=== PATIENT | male | born 1995 | race Caucasian/White ===

== ENCOUNTER 2018-09-04 00:48 | Emergency (ER) | payer SELFPAY ==
[~2018-09-04] VITALS: Ht 170.2 cm; Wt 72.6 kg
--- NOTE | 2018-09-04 01:10 | NUR ---
BIB SELF FROM HOME. AAOX4. BREATHING EVEN AND UNLABORED. AMBULATORY. C/O FEVER X4 DAYS, SORE THROAT X 1 MONTH AND TINGLING ON BILAT LOWER EXTREMITIES X 2 HOURS AGO. PT REPORT INTERMITENT CHEST PAIN WHICH IN NOT PRESENT AT THE TIME OF ASSESSMENT. PT ALSO REPORTS NON PRODUCTIVE COUGH AND HEADACHE. +NAUSEA, NO VOMITING OR DIARRHEA. TO ER BED 12. AWAITING MD CARTY AND ORDERS
[2018-09-04] MEDS ORDERED: IV NS 0.9% 1,000 ML BAG IV ONE (01:30)
[2018-09-04 01:40] LABS: BASOPHILS % (AUTO) 0.3 % (0.0-2.0); EOSINOPHILS % (AUTO) 0.1 % (0.0-6.0); HEMATOCRIT 46 % (39-51); HEMOGLOBIN 15.6 g/dL (13.5-17.5); LYMPHOCYTES # (AUTO) 1.6 /CMM (0.8-4.8); MEAN CORPUSCULAR HGB CONC 34 g/dl (31.0-36.0); MEAN CORPUSCULAR VOLUME 83 fL (80-96); MONOCYTES # (AUTO) 1.7 /CMM (0.1-1.30); MONOCYTES % (AUTO) 13.3 % (2.0-12.0); NEUTROPHILS # (AUTO) 9.6 /CMM (1.8-8.9); NEUTROPHILS % (AUTO) 74.3 % (43.0-81.0); PLATELET COUNT (AUTO) 213 /CMM (150-450); RED BLOOD CELL COUNT(AUTO) 5.59 MIL/uL (4.5-6.0)
[2018-09-04 01:47] LABS: CALCIUM, SERUM 9.2 mg/dL (8.5-10.1); CREATININE 1.2 mg/dL (0.6-1.3); POTASSIUM 3.4 mmol/L (3.5-5.1)
[2018-09-04] MEDS ORDERED: ACETAMINOPHEN 325 MG TABLET PO ONE (03:00)
[2018-09-04] MEDS ORDERED: ACETAMINOPHEN 325 MG TABLET ONE (03:22)
--- NOTE | 2018-09-04 03:30 | NUR ---
LAB AT BEDSIDE FOR BLOOD DRAW
[2018-09-04 03:44] LABS: CALCIUM, SERUM 8.3 mg/dL (8.5-10.1); CREATININE 1.1 mg/dL (0.6-1.3); POTASSIUM 3.6 mmol/L (3.5-5.1)
--- NOTE | 2018-09-04 04:35 | NUR ---
Patient discharged to home in stable condition. Written and verbal after care instructions given. Patient verbalizes understanding of instruction.IV removed. Catheter intact and site benign. Pressure and 4x4 applied to site. No bleeding noted. Pt ambulatory with a steady gait
[2018-09-04 05:10] VITALS: BP 124/67
== END 2018-09-04 04:35 | disposition home or self-care (01) ==
LOC: ER 00:51
DX: B34.9 Viral infection, unspecified (principal); E86.0 Dehydration; F17.200 Nicotine dependence, unspecified, uncomplicated
CPT/HCPCS: 36415; 71046; 80048 ×2; 85025; 96360; 99284; J7030